=== PATIENT | female | born 1995 | race African-American/Black ===

== ENCOUNTER 2017-05-23 12:00 | Emergency (ER) | payer OTHER ==
[2017-05-23] MEDS: CEPHALEXIN 500 MG CAP PO (13:22)
== END 2017-05-23 14:32 | disposition home or self-care (01) ==
LOC: M ED 12:00
DX: L03.114 Cellulitis of left upper limb (principal); S61.412A Laceration without foreign body of left hand, initial encounter; W26.0XXA Contact with knife, initial encounter; Y92.89 Other specified places as the place of occurrence of the external cause; Z79.3 Long term (current) use of hormonal contraceptives; Z91.018 Allergy to other foods
CPT/HCPCS: 87186